=== PATIENT | male | born 1980 | race Caucasian/White ===

== ENCOUNTER 2018-03-03 23:48 | Emergency (ER) | payer SELFPAY ==
[2018-03-03 23:52] VITALS: BP 120/104
--- NOTE | 2018-03-03 23:53 | ER Report ---
History and Physical Time Seen By MD: 23:53 HPI/ROS CHIEF COMPLAINT: Alcohol intoxication, residential clearance HISTORY OF PRESENT ILLNESS: This is a 38 year old male. He is brought to the ER by [place] [employer] for intoxication. He admits to drinking too much tonight. He denies pain or medical problems. No concerns from the police officers at this time. REVIEW OF SYSTEMS: Respiratory: No cough, no dyspnea. Cardiovascular: No chest pain, no palpitations. Gastrointestinal: No vomiting, no abdominal pain. Musculoskeletal: No musculoskeletal pain. Allergies: Coded Allergies: No Known Drug Allergies (Unverified , 03/03/18) Home Meds No Active Prescriptions or Reported Meds Reviewed Nurses Notes: Yes Constitutional Vital Sign - Last 24 Hours 03/03/18 23:52 Temp 98.7 Pulse 132 Resp 17 B/P (MAP) 120/104 Pulse Ox 93 O2 Delivery Room Air Physical Exam General Appearance: The patient is alert. Intoxicated, but no acute distress. Eyes: Pupils are equal, round. Reactive to light. No pallor or icterus but a little scleral injection. Extraocular movements are intact. ENT: Mucous membranes are moist. Normal oral mucosa. Posterior oropharynx is normal. Normal tympanic membranes and canals. Neck: Supple and non tender. No lymphadenopathy. Respiratory: Lungs are clear to auscultation. Cardiovascular: Regular rate and rhythm. No murmurs, gallops or rubs. Gastrointestinal: Abdomen is soft and non tender. Nondistended. Neurological: Alert and oriented x3. Intoxicated, but moving all extremities without deficits. Off balance. Skin: Warm and dry. No rashes. Musculoskeletal: Extremities are nontender. No tenderness in palpation of the cervical, thoracic and lumbar spine. DIFFERENTIAL DIAGNOSIS: After history and physical exam, differential diagnosis was considered for alcohol intoxication. Medical Decision Making ED Course/Re-evaluation ED Course Intoxicated, but no other signs of injury or concerns for medical problem. He is cleared to be discharged with the police to residential. Decision to Disposition Date: Mar 03, 2018 Decision to Disposition Time: 23:56 Depart Departure Latest Vital Signs Vital Signs Date Time Temp Pulse Resp B/P (MAP) Pulse Ox O2 Delivery O2 Flow Rate FiO2 03/03/18 23:52 98.7 132 17 120/104 93 Room Air Impression: Primary Impression: Alcohol intoxication Condition: Improved [facility]position: [facility] F New Scripts No Active Prescriptions or Reported Meds Patient Instructions: Alcohol Intoxication (ED) Problem Qualifiers Primary Impression: Alcohol intoxication Complication of substance-induced condition: uncomplicated Qualified Codes: F10.920 - Alcohol use, unspecified with intoxication, uncomplicated RUSTY VICTORIA MD Mar 03, 2018 23:53
== END 2018-03-04 00:03 ==
LOC: ER 03-04
DX: F10.920 Alcohol use, unspecified with intoxication, uncomplicated (principal)
CPT/HCPCS: 99281

== ENCOUNTER 2018-07-21 15:14 | Emergency (ER) | payer SELFPAY ==
[2018-07-21 15:15] VITALS: BP 123/78
--- NOTE | 2018-07-21 15:16 | ER Report ---
History and Physical Time Seen By MD: 15:16 HPI/ROS CHIEF COMPLAINT: Alcohol intoxication HISTORY OF PRESENT ILLNESS: Patient is a 38-year-old male here with alcohol intoxication. Patient is accompanied by police who brought the patient in after he was found at [facility] unable to stand due to alcohol intoxication. Patient was found to be above the limit of 250 so the patient was brought to the emergency department for local clearance prior to proceeding to usp. Patient is hemodynamically stable at time of evaluation, visibly intoxicated with no obvious signs of trauma or complaints. REVIEW OF SYSTEMS: Constitutional: No fever, no chills. Eyes: No discharge. ENT: No sore throat. Cardiovascular: No chest pain, no palpitations. Respiratory: No cough, no shortness of breath. Gastrointestinal: No abdominal pain, no vomiting. Genitourinary: No hematuria. Musculoskeletal: No back pain. Skin: No rashes. Neurological: No headache. Allergies: Coded Allergies: No Known Drug Allergies (Unverified , 03/03/18) Home Meds No Active Prescriptions or Reported Meds Hx Substance Use Disorder: Yes Constitutional Vital Sign - Last 24 Hours 07/21/18 15:15 Temp 98.8 Pulse 120 Resp 20 B/P (MAP) 123/78 Pulse Ox 91 O2 Delivery Room Air Physical Exam General Appearance: The patient is alert, has no immediate need for airway protection and no signs of toxicity. Visibly intoxicated Eyes: Pupils equal and round no pallor or injection. ENT, Mouth: Mucous membranes are moist. Respiratory: There are no retractions, lungs are clear to auscultation. Cardiovascular: Regular rate and rhythm. Gastrointestinal: Abdomen is soft and non tender, no masses, bowel sounds normal. Neurological: Intoxicated, slurring speech, agitated at times Skin: Warm and dry, no rashes. Musculoskeletal: Neck is supple non tender. Extremities are nontender, nonswollen and have full range of motion. DIFFERENTIAL DIAGNOSIS: After history and physical exam differential diagnosis was considered for alcohol intoxication, polysubstance abuse Medical Decision Making ED Course/Re-evaluation ED Course Patient is a 38-year-old male here with acute alcohol intoxication after being found at [facility] unable to stand or care for himself. Patient was found to have an alcohol level greater than 250 requiring medical clearance prior to proceeding to usp. Physical exam was unremarkable aside from the patient being visibly intoxicated, slurring speech, agitated at times. Patient was medically cleared to proceed to usp with police. Patient remained hemodynamically stable throughout course and had no complaints at this time from a medical standpoint. Decision to Disposition Date: Jul 21, 2018 Decision to Disposition Time: 15:28 Depart Departure Latest Vital Signs Vital Signs Date Time Temp Pulse Resp B/P (MAP) Pulse Ox O2 Delivery O2 Flow Rate FiO2 07/21/18 15:15 98.8 120 20 123/78 91 Room Air Impression: Primary Impression: Alcohol intoxication Condition: Condition Unchanged Disposition: HOME OR SELF-CARE New Scripts No Active Prescriptions or Reported Meds Patient Instructions: Abuse of Alcohol (ED) Additional Instructions: Please consider alcohol cessation. Please drink plenty of water. CHRISS PABON DO Jul 21, 2018 15:16
== END 2018-07-21 15:29 ==
LOC: ER 15:23
DX: F10.920 Alcohol use, unspecified with intoxication, uncomplicated (principal)
CPT/HCPCS: 99281

== ENCOUNTER 2018-08-19 03:22 | Emergency (ER) | payer SELFPAY ==
[2018-08-19 03:23] VITALS: BP 134/101
--- NOTE | 2018-08-19 03:27 | ER Report ---
History and Physical Time Seen By MD: 03:22 HPI/ROS CHIEF COMPLAINT: Found down, appears grossly alcohol intoxicated HISTORY OF PRESENT ILLNESS: 38-year-old male brought in by police for half-way clearance. He was found passed out in the middle of the road. No evidence of trauma. Patient's arousable and appears grossly intoxicated. Patient denies any complaints or injuries. REVIEW OF SYSTEMS: Respiratory: No cough, no dyspnea. Cardiovascular: No chest pain, no palpitations. Gastrointestinal: No vomiting, no abdominal pain. Musculoskeletal: No back pain. Allergies: Coded Allergies: No Known Drug Allergies (Unverified , 08/19/18) Home Meds No Active Prescriptions or Reported Meds Past Medical/Surgical History Alcoholism, 2 previous ER visits for alcohol-related problems Hx Substance Use Disorder: Yes Constitutional Vital Sign - Last 24 Hours 08/19/18 03:23 Temp 99.1 Pulse 110 Resp 16 B/P (MAP) 134/101 Pulse Ox 91 O2 Delivery Room Air Physical Exam General Appearance: The patient is alert, has no immediate need for airway protection and no current signs of toxicity. Palpation of the head and neck reveals no tenderness or trauma HEENT: Pupils equal and round no injection. TMs normal, oropharynx without dental trauma Respiratory: Chest is non tender, lungs are clear to auscultation. No chest wall tenderness Cardiac: regular rate and rhythm Gastrointestinal: Abdomen is soft and non tender, no masses, bowel sounds normal. Musculoskeletal: Neck: Neck is supple and non tender. Extremities have full range of motion and are non tender. No evidence of trauma Skin: No rashes or lesions. DIFFERENTIAL DIAGNOSIS: After history and physical exam differential diagnosis was considered for alcohol intoxication, polysubstance abuse, half-way clearance Medical Decision Making ED Course/Re-evaluation ED Course Patient was admitted to an examination room. H&P was done. The differential diagnoses was considered. On conical examination, patient appears grossly alcohol intoxicated. Patient voices no complaints or injuries. On clinical examination, there are no findings. Vital signs are stable. Review of his old records show to previous alcohol related visits here in the emergency department. Patient's medical cleared for half-way admission. Decision to Disposition Date: Aug 19, 2018 Decision to Disposition Time: 03:25 Depart Departure Latest Vital Signs Vital Signs Date Time Temp Pulse Resp B/P (MAP) Pulse Ox O2 Delivery O2 Flow Rate FiO2 08/19/18 03:23 99.1 110 16 134/101 91 Room Air Impression: Primary Impression: Medical clearance for incarceration Additional Impression: Alcohol intoxication Condition: Improved Disposition: [facility] TO LONGTERM/CORRECTIONAL F New Scripts No Active Prescriptions or Reported Meds Patient Instructions: Alcohol Intoxication (ED) Additional Instructions: Medically cleared for half-way admission Problem Qualifiers Additional Impression: Alcohol intoxication Complication of substance-induced condition: uncomplicated Qualified Codes: F10.920 - Alcohol use, unspecified with intoxication, uncomplicated DEWAYNE VARGAS DO Aug 19, 2018 03:27
== END 2018-08-19 03:31 ==
LOC: ER 03:26
DX: F10.920 Alcohol use, unspecified with intoxication, uncomplicated (principal)
CPT/HCPCS: 99281

== ENCOUNTER 2018-09-19 22:56 | Emergency (ER) | payer SELFPAY ==
[2018-09-19 22:57] VITALS: BP 142/104
--- NOTE | 2018-09-19 23:00 | ER Report ---
History and Physical Time Seen By MD: 23:00 HPI/ROS CHIEF COMPLAINT: Half-Way clearance, alcohol intoxication HISTORY OF PRESENT ILLNESS: This is a 38-year-old male. He is binging heavily. Brought in by [place] [employer] for group home clearance. Patient denies any pain. No history of any injuries. He denies any health problems. The only question he has is about sexually transmitted disease testing. Denies shortness of breath or chest pain. Allergies: Coded Allergies: No Known Drug Allergies (Unverified , 09/19/18) Home Meds No Active Prescriptions or Reported Meds Reviewed Nurses Notes: Yes Hx Substance Use Disorder: Yes Constitutional Vital Sign - Last 24 Hours 09/19/18 22:57 Temp 98.6 Pulse 125 Resp 16 B/P (MAP) 142/104 Pulse Ox 89 O2 Delivery Room Air Physical Exam General Appearance: Intoxicated, alert. Minimally cooperative and wants me do a basic exam. Eyes: Pupils equal and round, has scleral injection. ENT: Normal oral mucosa. Moist mucous membranes. Neck: Neck is supple and non tender. Respiratory: Lungs are clear to auscultation. Cardiac: regular rate and rhythm Musculoskeletal: No pain with palpating neck and back. The pain with palpating chest. DIFFERENTIAL DIAGNOSIS: After history and physical exam differential diagnosis was considered for alcohol intoxication Medical Decision Making ED Course/Re-evaluation ED Course No concerns at this time other now call intoxication. Cleared to be discharged to group home with the police. Decision to Disposition Date: Sep 19, 2018 Decision to Disposition Time: 23:08 Depart Departure Latest Vital Signs Vital Signs Date Time Temp Pulse Resp B/P (MAP) Pulse Ox O2 Delivery O2 Flow Rate FiO2 09/19/18 22:57 98.6 125 16 142/104 89 Room Air Impression: Primary Impression: Medical clearance for incarceration Additional Impression: Alcohol intoxication Condition: Improved Disposition: HOME OR SELF-CARE New Scripts No Active Prescriptions or Reported Meds Patient Instructions: Alcohol Intoxication (ED) Additional Instructions: With your questions regarding sexually transmitted disease testing, once released from police custody a few wanted to come back to the hospital to discuss this further we could certainly do testing for you, or he could follow up with the [facility], or with her primary care physician. Problem Qualifiers Additional Impression: Alcohol intoxication Complication of substance-induced condition: uncomplicated Qualified Codes: F10.920 - Alcohol use, unspecified with intoxication, uncomplicated [facility] MD Sep 19, 2018 23:00
== END 2018-09-19 23:13 ==
LOC: ER 23:00
DX: F10.920 Alcohol use, unspecified with intoxication, uncomplicated (principal)
CPT/HCPCS: 99281

== ENCOUNTER 2019-02-12 17:29 | Emergency (ER) | payer SELFPAY ==
--- NOTE | 2019-02-12 17:34 | ER Report ---
History and Physical Time Seen By MD: 17:30 HPI/ROS CHIEF COMPLAINT: Seizure HISTORY OF PRESENT ILLNESS: 39-year-old male patient presents to the emergency room with complaint of possible seizure. Patient states that he was driving home from work. He was a passenger in a truck. He states that he started have cramping in his hands that went up into his face. He states that he gets concerned because is unsure how long he is going to last. He states that this happens him stop. They were going home and then it recurred. At that time the person that he was driving decided to bring him to the emergency room for evaluation. Patient states right now he feels significantly better. He states the cramping is stop. He states this happened and opacities in been seen for this before. He denies any nausea, vomiting or diarrhea. Patient also denies having any loss of consciousness during these episodes. REVIEW OF SYSTEMS: Respiratory: No cough, no dyspnea. Cardiovascular: No chest pain, no palpitations. Gastrointestinal: No vomiting, no abdominal pain. Musculoskeletal: No back pain. Allergies: Coded Allergies: No Known Drug Allergies (Unverified , 02/12/19) Home Meds No Active Prescriptions or Reported Meds Past Medical/Surgical History Patient denies any pertinent medical or surgical history. Patient does have a history of being seen here in the emergency room for alcohol intoxication. Reviewed Nurses Notes: Yes Hx Substance Use Disorder: Yes Constitutional Vital Sign - Last 24 Hours 02/12/19 02/12/19 02/12/19 02/12/19 17:29 17:34 17:39 17:40 Pulse 106 87 105 Resp 11 18 14 B/P (MAP) 144/114 (124) 144/114 Pulse Ox 93 94 O2 Delivery Room Air 02/12/19 17:44 Pulse 102 Resp 12 Pulse Ox 96 Physical Exam General Appearance: The patient is alert, has no immediate need for airway protection and no current signs of toxicity. Respiratory: Chest is non tender, lungs are clear to auscultation. Cardiac: regular rate and rhythm Gastrointestinal: Abdomen is soft and non tender, no masses, bowel sounds normal. Musculoskeletal: Neck: Neck is supple and non tender. Extremities have full range of motion and are non tender. Skin: No rashes or lesions. Neuro: Patient is alert and oriented 4, cranial nerves II through XII grossly intact, patient has equal strength in all extremities. He has no facial droop. DIFFERENTIAL DIAGNOSIS: After history and physical exam differential diagnosis was considered for anxiety, carpopedal spasm, seizure, alcohol withdrawal Medical Decision Making ED Course/Re-evaluation ED Course Patient was admitted to exam room, history and physical were obtained. Differential diagnoses were considered. On examination lungs were clear, heart was regular, abdomen soft nontender. Patient had equal strength in all extremities, he had no neurologic deficits. I discussed the lab tests and imaging that I would like to perform. Patient refused all tests at this time. He states that he feels better would like to go home. I believe this likely related to anxiety and so we will go ahead and discharge him home. However he is to follow-up with his primary care provider in the next 2-3 days. He is to return to the emergency room if condition worsens. I also informed him that with him not allowing me to do any testing I am not sure exactly what the cause is. I informed him that I did have concerns about possible problems and to the brain itself. However I'm unable to further evaluate this time and will allow him to follow-up with his primary care provider. Decision to Disposition Date: Feb 12, 2019 Decision to Disposition Time: 17:42 Depart Departure Latest Vital Signs Vital Signs Date Time Temp Pulse Resp B/P (MAP) Pulse Ox O2 Delivery O2 Flow Rate FiO2 02/12/19 17:44 102 12 96 02/12/19 17:40 144/114 Room Air Impression: Primary Impression: Anxiety Condition: Improved Disposition: HOME OR SELF-CARE New Scripts No Active Prescriptions or Reported Meds Patient Instructions: Anxiety (ED) Additional Instructions: Follow up with a primary care provider in the next 2-3 days. Return to the ER if condition worsens. Increase exercise. Decrease alcohol intake. I would like to check some things out and see what is going on, since you have declined any testing I would encourage following up soon with your primary care provider to further look at a cause. NEAL CROSS Feb 12, 2019 17:34
[2019-02-12 17:40] VITALS: BP 144/114
== END 2019-02-12 22:02 | disposition home or self-care (01) ==
LOC: ER 17:52
DX: F41.9 Anxiety disorder, unspecified (principal)
CPT/HCPCS: 99281